=== PATIENT | male | born 1965 | race Asian ===

== ENCOUNTER 2017-11-29 11:42 | Observation (INO) | payer OTHER ==
[2017-11-29 12:19] LABS: Glucose,Whole Blood 158 mg/dL (75-99)
[2017-11-29] MEDS ORDERED: SODIUM CHLORIDE 0.9% 1,000 ML IV STA (12:26)
[2017-11-29] MEDS ORDERED: SODIUM CHLORIDE 0.9% 500 ML IV STA (12:26)
[2017-11-29] MEDS ORDERED: METOCLOPRAMIDE 5 MG/ML 2 ML VIAL IVP STA (12:27)
[2017-11-29] MEDS ORDERED: MECLIZINE 12.5 MG TAB PO STA (12:27)
--- NOTE | 2017-11-29 12:30 | ED ---
General Adult HPI - General Chief complaint: Dizziness Stated complaint: Dizziness Time Seen by Provider: 11/29/17 12:16 Source: patient, RN notes reviewed Mode of arrival: ambulatory Limitations: language barrier (Coworker is present and helps with history) - History of Present Illness Initial comments: Patient is a pleasant 52-year-old male presenting to the emergency department with dizziness. Onset was when he woke this morning around 8 AM. Patient feels like he is spinning. Patient has poor Danish and is a poor historian. Patient has reported history of hypertension. Patient admits to having nausea and some vomiting. Patient had one episode of diarrhea early this morning. - Related Data Home Medications Medication Instructions Recorded Confirmed No Known Home Medications [No 11/29/17 11/29/17 Known Home Medications] Allergies Allergy/AdvReac Type Severity Reaction Status Date / Time No Known Allergies Allergy Verified 11/29/17 12:03 Review of Systems ROS Statement: Those systems with pertinent positive or pertinent negative responses have been documented in the HPI. ROS Other: All systems not noted in ROS Statement are negative. Constitutional: Denies: fever Eyes: Denies: eye pain ENT: Denies: ear pain Respiratory: Denies: cough Cardiovascular: Denies: chest pain Endocrine: Denies: fatigue Gastrointestinal: Reports: nausea, vomiting Genitourinary: Denies: dysuria Musculoskeletal: Denies: back pain Skin: Denies: rash Neurological: Reports: vertigo. Denies: headache Past Medical History Past Medical History: Hypertension History of Any Multi-Drug Resistant Organisms: Unobtainable Past Surgical History: No Surgical Hx Reported Past Psychological History: Unable to Obtain Smoking Status: Unknown if ever smoked Past Alcohol Use History: Unable to Obtain Past Drug Use History: Unable to Obtain General Exam Limitations: language barrier General appearance: alert Head exam: Present: atraumatic Eye exam: Present: normal appearance, PERRL, EOMI. Absent: nystagmus ENT exam: Present: normal oropharynx Neck exam: Present: normal inspection Respiratory exam: Present: normal lung sounds bilaterally Cardiovascular Exam: Present: regular rate, normal rhythm GI/Abdominal exam: Present: soft. Absent: tenderness Extremities exam: Present: normal inspection Neurological exam: Present: alert, CN II-XII intact. Absent: motor sensory deficit Expanded Neurological exam: Present: protecting the airway Cranial nerves: EOM's Intact: Normal Motor strength exam: RUE: 5, LUE: 5, RLE: 5, LLE: 5 Psychiatric exam: Present: normal affect, normal mood Skin exam: Present: normal color Course Vital Signs 11/29/17 11/29/17 11:44 12:38 Temperature 97.3 F L Pulse Rate 63 56 L Respiratory 18 18 Rate Blood Pressure 200/102 166/84 O2 Sat by Pulse 97 98 Oximetry EKG Findings - EKG Comments: EKG Findings:: Normal sinus rhythm 64. UT 184. QRS 96. QT 460. QTC 474. Normal axis. LVH with repolarization changes. Medical Decision Making - Medical Decision Making Patient reevaluated and does feel much better. Patient states symptoms still return with attempts to get up. Patient is unable to get up and walk. Patient and family members who are now present and are updated on results and plan. Case was discussed in detail with Dr. myers, who will admit for medical call. He does request an echo. - Lab Data Result diagrams: 11/29/17 12:25 11/29/17 12:25 Lab Results 11/29/17 11/29/17 11/29/17 Range/Units 12:15 12:25 12:25 WBC 10.5 (3.8-10.6) k/uL RBC 5.29 (4.30-5.90) m/uL Hgb 15.9 (13.0-17.5) gm/dL Hct 47.1 (39.0-53.0) % MCV 89.1 (80.0-100.0) fL MCH 30.1 (25.0-35.0) pg MCHC 33.8 (31.0-37.0) g/dL RDW 12.5 (11.5-15.5) % Plt Count 217 (150-450) k/uL Neutrophils % 86 % Lymphocytes % 10 % Monocytes % 3 % Eosinophils % 1 % Basophils % 0 % Neutrophils # 9.1 H (1.3-7.7) k/uL Lymphocytes # 1.1 (1.0-4.8) k/uL Monocytes # 0.3 (0-1.0) k/uL Eosinophils # 0.1 (0-0.7) k/uL Basophils # 0.0 (0-0.2) k/uL PT (9.0-12.0) sec INR (<1.2) APTT (22.0-30.0) sec Sodium (137-145) mmol/L Potassium (3.5-5.1) mmol/L Chloride (98-107) mmol/L Carbon Dioxide (22-30) mmol/L Anion Gap mmol/L BUN (9-20) mg/dL Creatinine (0.66-1.25) mg/dL Est GFR (CKD-EPI)AfAm (>60 ml/min/1.73 sqM) Est GFR (CKD-EPI)NonAf (>60 ml/min/1.73 sqM) Glucose (74-99) mg/dL POC Glucose (mg/dL) 158 H (75-99) mg/dL POC Glu Cracker Dough Mixer ID [place], Jael Calcium (8.4-10.2) mg/dL Total Bilirubin (0.2-1.3) mg/dL AST (17-59) U/L ALT (21-72) U/L Alkaline Phosphatase (38-126) U/L Total Creatine Kinase 310 H (55-170) U/L CK-MB (CK-2) 4.5 H* (0.0-2.4) ng/mL CK-MB (CK-2) Rel Index 1.5 Troponin I 0.017 (0.000-0.034) ng/mL Total Protein (6.3-8.2) g/dL Albumin (3.5-5.0) g/dL 11/29/17 11/29/17 Range/Units 12:25 12:25 WBC (3.8-10.6) k/uL RBC (4.30-5.90) m/uL Hgb (13.0-17.5) gm/dL Hct (39.0-53.0) % MCV (80.0-100.0) fL MCH (25.0-35.0) pg MCHC (31.0-37.0) g/dL RDW (11.5-15.5) % Plt Count (150-450) k/uL Neutrophils % % Lymphocytes % % Monocytes % % Eosinophils % % Basophils % % Neutrophils # (1.3-7.7) k/uL Lymphocytes # (1.0-4.8) k/uL Monocytes # (0-1.0) k/uL Eosinophils # (0-0.7) k/uL Basophils # (0-0.2) k/uL PT 10.3 (9.0-12.0) sec INR 1.1 (<1.2) APTT 22.5 (22.0-30.0) sec Sodium 142 (137-145) mmol/L Potassium 4.4 (3.5-5.1) mmol/L Chloride 103 (98-107) mmol/L Carbon Dioxide 25 (22-30) mmol/L Anion Gap 14 mmol/L BUN 26 H (9-20) mg/dL Creatinine 1.00 (0.66-1.25) mg/dL Est GFR (CKD-EPI)AfAm >90 (>60 ml/min/1.73 sqM) Est GFR (CKD-EPI)NonAf 85 (>60 ml/min/1.73 sqM) Glucose 149 H (74-99) mg/dL POC Glucose (mg/dL) (75-99) mg/dL POC Glu Cracker Dough Mixer ID Calcium 9.0 (8.4-10.2) mg/dL Total Bilirubin 0.6 (0.2-1.3) mg/dL AST 39 (17-59) U/L ALT 52 (21-72) U/L Alkaline Phosphatase 75 (38-126) U/L Total Creatine Kinase (55-170) U/L CK-MB (CK-2) (0.0-2.4) ng/mL CK-MB (CK-2) Rel Index Troponin I (0.000-0.034) ng/mL Total Protein 7.3 (6.3-8.2) g/dL Albumin 4.6 (3.5-5.0) g/dL - Radiology Data Radiology results: image reviewed (Computed tomography scan of the brain shows no acute hemorrhage or mass effect. Nonspecific low attenuation white matter.) Disposition Clinical Impression: Vertigo Disposition: ADMITTED IP TO THIS [facility] Referrals: None,Stated [Primary Care Provider] - 1-2 days Decision Time: 14:23
[2017-11-29 12:43] LABS: Basophils % (A) 0 %; Eosinophils # (A) 0.1 k/uL (0-0.7); Eosinophils % (A) 1 %; HCT 47.1 % (39.0-53.0); HGB 15.9 gm/dL (13.0-17.5); Lymphocytes # (A) 1.1 k/uL (1.0-4.8); Lymphocytes % (A) 10 %; MCH 30.1 pg (25.0-35.0); MCHC 33.8 g/dL (31.0-37.0); MCV 89.1 fL (80.0-100.0); Mean Platelet Volume 7.4; Monocytes # (A) 0.3 k/uL (0-1.0); Monocytes % (A) 3 %; Neutrophils # (A) 9.1 k/uL (1.3-7.7); Neutrophils % (A) 86 %; Platelet Count 217 k/uL (150-450); RBC 5.29 m/uL (4.30-5.90); RDW 12.5 % (11.5-15.5); WBC 10.5 k/uL (3.8-10.6)
[2017-11-29 12:48] LABS: ALT 52 U/L (21-72); AST 39 U/L (17-59); Albumin 4.6 g/dL (3.5-5.0); Alkaline Phosphatase 75 U/L (38-126); Anion Gap 14 mmol/L; Blood Urea Nitrogen 26 mg/dL (9-20); Carbon Dioxide 25 mmol/L (22-30); Chloride 103 mmol/L (98-107); Glucose 149 mg/dL (74-99); Potassium 4.4 mmol/L (3.5-5.1); Sodium 142 mmol/L (137-145); Total Bilirubin 0.6 mg/dL (0.2-1.3); Total Protein 7.3 g/dL (6.3-8.2)
[2017-11-29 12:54] LABS: INR 1.1 (<1.2); Partial Thromboplastin Time 22.5 sec (22.0-30.0); Prothrombin Time 10.3 sec (9.0-12.0)
--- NOTE | 2017-11-29 13:11 | CT ---
EXAMINATION TYPE: CT brain wo con DATE OF EXAM: 11/29/2017 COMPARISON: NONE HISTORY: Headache, dizziness, vomiting and weakness today CT DLP: 1126.[address] of the head is obtained. The ventricles, basal cisterns and sulci overlying the conve xities are consistent with the patient's age. The calvarium is intact. Nonspecific low-attenuation t he white matter. No midline shift. Atherosclerotic change of the vasculature noted. Mild changes of chronic sinusitis. Area of low attenuation in the right basal ganglia may represent prominent Virchow-Oliverio space or re mote lacunar infarct. IMPRESSION: 1. No evidence of acute hemorrhage or mass effect. Nonspecific low-attenuation the white matter can b e seen with remote microvascular ischemia. Other etiologies not excluded. If symptoms persist or the re is continued clinical concern for acute ischemia correlate with MRI.
[2017-11-29 13:18] LABS: Troponin I 0.017 ng/mL (0.000-0.034)
[2017-11-29 13:27] LABS: Creatine Kinase MB 4.5 ng/mL (0.0-2.4)
[2017-11-29] MEDS ORDERED: LORazepam 2 MG/ML INJ IV PRN (14:23)
[2017-11-29] MEDS ORDERED: NALOXONE 0.4 MG/ML 1 ML VIAL IV PRN (14:23)
[2017-11-29] MEDS: SODIUM CHLORIDE 0.9% 1,000 ML IV SCH (15:39)
[2017-11-29 16:31] VITALS: BMI 23.4
--- NOTE | 2017-11-29 16:59 | ECHOF ---
Referral Reason:LVH, dizziness MEASUREMENTS -------- HEIGHT: 152.4 cm WEIGHT: 74.8 kg BP: IVSd: 1.6 cm (0.6 - 1.1) LVIDd: 3.9 cm (3.9 - 5.3) LVPWd: 1.8 cm (0.6 - 1.1) IVSs: 1.9 cm LVIDs: 2.3 cm LVPWs: 2.0 cm LA Diam: 4.2 cm (2.7 - 3.8) LAESV Index (A-L): 34.82 ml/m Ao Diam: 3.0 cm (2.0 - 3.7) AV Cusp: 1.7 cm (1.5 - 2.6) LA Diam: 4.5 cm (2.7 - 3.8) MV EXCURSION: 15.271 mm (> 18.000) MV EF SLOPE: 78 mm/s (70 - 150) EPSS: 0.3 cm MV E James: 0.47 m/s MV DecT: 335 ms MV A James: 0.73 m/s MV E/A Ratio: 0.64 RAP: 5.00 mmHg RVSP: 17.49 mmHg FINDINGS -------- Sinus rhythm. This was a technically good study. Overall left ventricular systolic function is low-normal with, an EF between 50 - 55 %. Hypertrophy Cardiomyopathy involving septal, apex, lateral ferguson,with cavity obliteration with a peak gradient o f 40.27mmhg and a mean gradient of 9.63mmhg with JENNIFER and LVOT obstruction with peak gradient of 32.5 4mmgh and mean gradient of 9.10mmhg. The right ventricle is normal in size. The left atrium is mildly dilated. LA is moderately dilated 34-39 ml/m2 The right atrial size is normal. The aortic valve is trileaflet, and appears structurally normal. No aortic stenosis or regurgitation. Mild mitral regurgitation is present. Mild tricuspid regurgitation present. There is no evidence of pulmonary hypertension. The right v entricular systolic pressure, as measured by Doppler, is 17.49mmHg. Trace/mild (physiologic) pulmonic regurgitation. The aortic root size is normal. There is no pericardial effusion. CONCLUSIONS -------- 1. Overall left ventricular systolic function is low-normal with, an EF between 50 - 55 %. 2. Hypertrophy Cardiomyopathy involving septal, apex, lateral ferguson,with cavity obliteration with a p eak gradient of 40.27mmhg and a mean gradient of 9.63mmhg with JENNIFER and LVOT obstruction with peak gr adient of 32.54mmgh and mean gradient of 9.10mmhg. 3. The left atrium is mildly dilated. 4. LA is moderately dilated 34-39 ml/m2 5. The aortic valve is trileaflet, and appears structurally normal. No aortic stenosis or regurgitati on. 6. Mild mitral regurgitation is present. 7. Mild tricuspid regurgitation present. 8. There is no evidence of pulmonary hypertension. 9. The right ventricular systolic pressure, as measured by Doppler, is 17.49mmHg. 10. Trace/mild (physiologic) pulmonic regurgitation. 11. The aortic root size is normal. 12. There is no pericardial effusion. WINDOW SHADE INSTALLER: Cindy Justin RDCS
--- NOTE | 2017-11-29 19:15 | P.CONS ---
History of Present Illness - Reason for Consult Consult date: 11/29/17 Vertigo - Chief Complaint Vertigo - History of Present Illness Is a pleasant 52-year-old male being evaluated by the neurology office for vertigo. He woke this morning around 8 AM with acute onset of severe vertigo. He had an episode or 2 of vomiting. Initially he did have a headache. He denies any significant headache now or recent upper respiratory illness. He was afebrile on admission. Resenting blood pressure was 200/102 with a pulse of 63. EKG showed a normal sinus rhythm with evidence of left ventricular hypertrophy. He was consulted and echocardiogram has been accomplished. His symptoms have persisted. And he is unable to get up and walk without severe vertigo. His glucose has been a little elevated. His CT of the brain in the emergency room showed no evidence of acute hemorrhage or mass. There was nonspecific white matter changes consistent with chronic small vessel ischemia. At the time of my exam he is lying very still in bed. He is guarding his head movements to avoid symptoms. Otherwise he is in no acute distress. Review of Systems Constitutional: Reports as per HPI Past Medical History Past Medical History: Hypertension History of Any Multi-Drug Resistant Organisms: Unobtainable Past Surgical History: No Surgical Hx Reported Past Psychological History: Unable to Obtain Smoking Status: Light tobacco smoker Past Alcohol Use History: Unable to Obtain Past Drug Use History: Unable to Obtain Medications and Allergies Home Medications Medication Instructions Recorded Confirmed Type No Known Home Medications [No 11/29/17 11/29/17 History Known Home Medications] Allergies Allergy/AdvReac Type Severity Reaction Status Date / Time No Known Allergies Allergy Verified 11/29/17 12:03 Physical Exam Vitals: Vital Signs Temp Pulse Pulse Resp BP BP Pulse Ox 11/29/17 16:48 98.3 F 66 16 167/96 97 11/29/17 16:09 97.6 F 64 18 148/87 99 11/29/17 15:35 75 18 169/98 97 11/29/17 14:50 97.6 F 11/29/17 14:47 66 16 149/77 99 11/29/17 12:38 56 L 18 166/84 98 11/29/17 11:44 97.3 F L 63 18 200/102 97 Intake and Output 11/29/17 11/29/17 11/29/17 06:59 14:59 22:59 Other: Weight 74.843 kg 76.204 kg - Constitutional General appearance: average body habitus, cooperative, no acute distress - EENT Eyes: no abnormal pupil, EOMI, PERRLA, no ptosis ENT: hearing grossly normal - Neck Neck: no lymphadenopathy, normal ROM, no rigidity - Respiratory Respiratory: negative: prolonged expiration, prolonged inspiration - Cardiovascular Rhythm: regular - Gastrointestinal General gastrointestinal: no distended, no tenderness - Neurologic The patient is alert awake and oriented 3. Speech and language are normal however there is a language barrier. His son is present and says his speech has not changed.. There is no facial asymmetry. Strength is 5 out of 5 in bilateral upper and lower extremities. There is no sensory deficit. No tremors or seizures are seen. Cranial nerves II through XII are intact globally. No nystagmus, no pronator drift. Results CBC & Chem 7: 11/29/17 12:25 11/29/17 12:25 Labs: Abnormal Lab Results - Last 24 Hours (Table) 11/29/17 11/29/17 11/29/17 Range/Units 12:15 12:25 12:25 Neutrophils # 9.1 H (1.3-7.7) k/uL BUN (9-20) mg/dL Glucose (74-99) mg/dL POC Glucose (mg/dL) 158 H (75-99) mg/dL Total Creatine Kinase 310 H (55-170) U/L CK-MB (CK-2) 4.5 H* (0.0-2.4) ng/mL 11/29/17 Range/Units 12:25 Neutrophils # (1.3-7.7) k/uL BUN 26 H (9-20) mg/dL Glucose 149 H (74-99) mg/dL POC Glucose (mg/dL) (75-99) mg/dL Total Creatine Kinase (55-170) U/L CK-MB (CK-2) (0.0-2.4) ng/mL Assessment and Plan (1) Headache Current Visit: Yes Status: Acute Code(s): R51 - HEADACHE SNOMED Code(s): 17132356 (2) Accelerated hypertension Current Visit: Yes Status: Chronic Code(s): I10 - ESSENTIAL (PRIMARY) HYPERTENSION SNOMED Code(s): 57846406 (3) Vomiting Current Visit: Yes Status: Acute Code(s): R11.10 - VOMITING, UNSPECIFIED SNOMED Code(s): 995706949 (4) Abnormal CT of brain Current Visit: Yes Status: Acute Code(s): R90.89 - OTH ABNORMAL FINDINGS ON DIAGNOSTIC IMAGING OF CNSL SNOMED Code(s): 469966294 (5) Vertigo Current Visit: Yes Status: Acute Code(s): R42 - DIZZINESS AND GIDDINESS SNOMED Code(s): 847227484 Plan: This patient with acute onset of vertigo headache and vomiting is clinically stable at this time except for persistent vertigo especially with head position. I will order MRI and MRA of the brain. I have also ordered EEG, fasting lipid panel and a carotid Doppler. If needed meclizine could be given for his vertigo. Continue neurological checks. Continue the rest your workup. We will follow and make recommendations based on the above studies. I have performed a history and physical on the above patient. I have reviewed the above note, and agree.
[2017-11-29 19:24] LABS: Troponin I 0.025 ng/mL (0.000-0.034)
[2017-11-29 19:30] LABS: Creatine Kinase MB 3.9 ng/mL (0.0-2.4)
--- NOTE | 2017-11-29 20:45 | US ---
EXAMINATION TYPE: US carotid duplex BILAT DATE OF EXAM: 11/29/2017 COMPARISON: NONE CLINICAL HISTORY: 52-year-old male orthostatic dizziness, possible TIA TECHNIQUE: Carotid duplex ultrasound examination. Indirect Doppler criteria was utilized. FINDINGS: EXAM MEASUREMENTS: RIGHT: Peak Systolic Velocity (PSV) cm/sec ----- Right CCA: 82.3 ----- Right ICA: 82.6 ----- Right ECA: 71.2 ICA/CCA ratio: 1.0 RIGHT: End Diastole cm/sec ----- Right CCA: 18.3 ----- Right ICA: 15.1 ----- Right ECA: 13.1 LEFT: Peak Systolic Velocity (PSV) cm/sec ----- Left CCA: 65.5 ----- Left ICA: 58.3 ----- Left ECA: 59.2 ICA/CCA ratio: 0.9 LEFT: End Diastole cm/sec ----- Left CCA: 16.3 ----- Left ICA: 20.8 ----- Left ECA: 9.0 VERTEBRALS (direction of flow): Right Vertebral: Antegrade Left Vertebral: Antegrade Rhythm: Normal Loan Processing Supervisor notes: No evident atherosclerotic changes and no velocity increases. IMPRESSION: No hemodynamically significant stenosis appreciated in either internal carotid artery. Criteria for Assigning % of Stenosis / Diameter reduction (Estimation based on the indirect measurements of the internal carotid artery velocities (ICA PSV). 1. Normal (no stenosis)=ICA PSV < 125 cm/s: ratio < 2.0: ICA EDV<40 cm/s. 2. Less than 50% stenosis=ICA PSV < 125 cm/s: ratio < 2.0: ICA EDV<40 cm/s. 3. 50 to 69% stenosis=ICA PSV of 125 to 230 cm/s: ration 2.0 ? 4.0: ICA EDV 40-100 cm/s. 4. Greater than 70% stenosis to near occlusion= ICA PSV > 230 cm/s: ratio > 4.0: ICA EDV > 100 cm/s. 5. Near occlusion= ICA PSV velocities may be low or undetectable: variable ratio and ICA EDV. 6. Total occlusion=unable to detect flow.
--- NOTE | 2017-11-29 21:28 | MR ---
EXAMINATION TYPE: MR brain wo con DATE OF EXAM: 11/29/2017 COMPARISON: CT earlier today HISTORY: 52-year-old male new-onset vertigo, abnormal CT TECHNIQUE: Multiplanar, multisequence images of the brain and brainstem were without IV contrast. Di ffusion weighted imaging is performed. FINDINGS: No evidence for acute infarction, hemorrhage, mass, mass effect, midline shift, herniation, effacemen t of basal cisterns, or extra-axial fluid collection. The ventricles and sulci are age-appropriate. Major intracranial flow voids are intact. T2/FLAIR weighted sequences show only mild scattered burden of bright white matter change particularl y in the periventricular and deep white matter regions of both cerebral hemispheres numbering approxi mately 5 to 10 on each side. Midline structures demonstrate normal morphology. The craniocervical junction is normal. No cerebellopontine angle mass. Trace mucosal thickening within the ethmoid air cells IMPRESSION: 1. No acute intracranial abnormality seen. 2. Only mild scattered burden of bright white matter change in both cerebral hemispheres. Likely mild burden of chronic small vessel ischemic disease.
--- NOTE | 2017-11-29 21:43 | MR ---
EXAMINATION TYPE: MR angio head wo con DATE OF EXAM: 11/29/2017 COMPARISON: NONE HISTORY: New vertigo with accelerated hypertension. Headache, dizziness, vomiting, and weakness. TECHNIQUE: Time of flight images focusing on the [place] of [place] were performed without contrast.. 2-D and 3-D postprocessing imaging is performed. FINDINGS: There is codominant vertebrobasilar system. Vertebral arteries are patent to basilar juncti on. There are hypoplastic posterior communicating arteries noted bilaterally. There is no significant focal stenosis or aneurysmal change in the posterior circulation. There is patent anterior communicating artery. There is no significant focal stenosis or aneurysmal c hange in the anterior circulation. IMPRESSION: No aneurysmal changes or significant stenosis identified at the level of the [place].
[2017-11-29] MEDS ORDERED: LISINOPRIL-HCTZ 20-12.5 MG 1 EACH TAB PO SCH (23:30)
--- NOTE | 2017-11-29 23:55 | HP ---
HISTORY AND PHYSICAL DATE OF ADMISSION: 11/29/2017. DATE OF SERVICE: 11/29/2017 PRESENTING COMPLAINT: Dizziness. HISTORY OF PRESENTING COMPLAINT: This is a 52-year-old [place]alander-speaking gentleman whose Chilean is very limited. No family member is present. History is obtained by the nurse in the ER notes. The patient has a history of hypertension, but has not been taking his medications, presents with dizziness. What I get out of the patient is that there was no chest pain, no shortness of breath and just patient felt things going around. Denies any change in vision. No weakness on the arms or legs. No palpitation. The patient's CT scan of the brain did not show any acute event. EKG done in the ER showed evidence of severe LVH and repolarization changes and 2D echo was ordered because of that. Also the patient was on a neurological workup from the ER, including a neuro consultation, and the patient's MRI of the brain was essentially unremarkable. The patient otherwise has been comfortable since his presentation. REVIEW OF SYSTEMS: Difficult to obtain because of language barrier. PAST MEDICAL HISTORY: Hypertension. PAST SURGICAL HISTORY: None reported. SOCIAL HISTORY: Patient denies drinking alcohol or smoking. The patient does not have a . He has 2 sons and works apparently works at the [employer] in [employer]. PHYSICAL EXAMINATION: VITAL SIGNS: On presentation, temperature 97.3, pulse 63, respirations 18, blood pressure 200/102, pulse ox 97% on room air. GENERAL APPEARANCE: Average build, lying in bed, comfortable. EYES: Pupils equal. Conjunctivae normal. HEENT: External appearance of nose and ears normal. Oral cavity normal. NECK: JVD not raised. Mass not palpable. RESPIRATORY: Effort normal. Lungs are clear. CARDIOVASCULAR: First and second sounds normal. No edema. ABDOMEN: Soft, nontender. Liver and spleen not palpable. LYMPHATIC: No lymph nodes palpable in neck or axillae. PSYCHIATRY: Patient is following commands. Difficult to assess further because of language barrier. NEUROLOGICAL: Pupils equal. Cranial nerves grossly intact. Power and sensation grossly intact. INVESTIGATION: White count 10.5, hemoglobin 15.9. Potassium 4.4, BUN 26, creatinine 1.0, glucose 149. Troponin 0.017, 0.025. EKG shows LVH with repolarization abnormality. ASSESSMENT: 1. This is a patient who has hypertensive heart disease per echocardiogram with severe repolarization changes. The patient may have had underlying arrhythmia causing his manifestation. 2. Accelerated hypertension, untreated. 3. Hypertensive heart disease. 4. No obvious clinical evidence of stroke with no focal or lateralizing symptoms. PLAN: Neurology was consulted from the ER and their workup is in place. We will also get a Cardiology opinion. For the blood pressure, we will start the patient on lisinopril/hydrochlorothiazide 20/12.5 twice a day and aspirin. The patient does have a family doctor, but cannot remember the same. MMODL / IJN: [id number] /
[2017-11-30 01:47] LABS: Cholesterol 179 mg/dL (<200); HDL Cholesterol 37 mg/dL (40-60); LDL Cholesterol,Calculated 92 mg/dL (0-99); Triglycerides 252 mg/dL (<150)
[2017-11-30 01:53] LABS: Creatine Kinase MB 3.3 ng/mL (0.0-2.4)
[2017-11-30 01:55] LABS: Troponin I 0.048 ng/mL (0.000-0.034)
[2017-11-30] MEDS ORDERED: HEPARIN SODIUM,PORCINE 5,000 UNIT/ML 1 ML VIAL IV ONE (02:14)
[2017-11-30] MEDS ORDERED: HEPARIN SODIUM,PORCINE 5,000 UNIT/ML 1 ML VIAL IV PRN (02:14)
[2017-11-30] MEDS: ASPIRIN 325 MG TAB PO SCH ×2 (02:27→11:27)
[2017-11-30] MEDS ORDERED: HEPARIN SODIUM,PORCINE/D5W PMX 25,000 UNIT in DEXTROSE/WATER 1 500ML.BAG IV SCH (02:30)
[2017-11-30 03:09] LABS: Basophils % (A) 1 %; Eosinophils # (A) 0.2 k/uL (0-0.7); Eosinophils % (A) 3 %; HGB 15.1 gm/dL (13.0-17.5); Lymphocytes # (A) 1.6 k/uL (1.0-4.8); Lymphocytes % (A) 26 %; MCH 30.3 pg (25.0-35.0); MCHC 33.5 g/dL (31.0-37.0); MCV 90.4 fL (80.0-100.0); Mean Platelet Volume 7.5; Monocytes # (A) 0.3 k/uL (0-1.0); Monocytes % (A) 5 %; Neutrophils # (A) 3.8 k/uL (1.3-7.7); Neutrophils % (A) 63 %; Platelet Count 211 k/uL (150-450); RBC 4.99 m/uL (4.30-5.90); RDW 12.7 % (11.5-15.5)
[2017-11-30 03:34] LABS: Partial Thromboplastin Time 22.6 sec (22.0-30.0)
[2017-11-30 09:33] VITALS: RESP 16
--- NOTE | 2017-11-30 10:17 | P.CRDCN ---
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 Apparently he is to live in [facility]. He is to take medications but has quit about 6 months ago. He came mainly with complaints of symptoms of dizziness suggestive of vertigo. Patient's blood pressure was high on admission. His symptoms have resolved and is feeling better today. His EKG on admission showed a sinus rhythm with evidence of left ventricle hypertrophy with a diffuse deep T-wave inversions in anterolateral leads. He denied any chest pain or shortness of breath. 2 of his troponin values are within normal limits and the third one is in the abnormal range. Echocardiogram is suggestive of hypertrophic cardiomyopathy, systolic anterior motion of the anterior leaflet or chordae tendineae. Most probably patient has this chronically. I'm going to change hypertensive medications to calcium channel jaida in the form of Norvasc. I will also repeat another troponin value to see if there is any trend to suggest acute coronary syndrome. Neurology workup is pending here, so fa, Carotid duplex study and a computed tomography scan of the brain were negative. Review of Systems As per the chart Past Medical History Past Medical History: Hypertension History of Any Multi-Drug Resistant Organisms: Unobtainable Past Surgical History: No Surgical Hx Reported Past Psychological History: Unable to Obtain Smoking Status: Light tobacco smoker Past Alcohol Use History: Unable to Obtain Past Drug Use History: Unable to Obtain Medications and Allergies Home Medications Medication Instructions Recorded Confirmed Type No Known Home Medications [No 11/29/17 11/29/17 History Known Home Medications] Allergies Allergy/AdvReac Type Severity Reaction Status Date / Time No Known Allergies Allergy Verified 11/29/17 12:03 Physical Exam Vitals: Vital Signs Temp Pulse Pulse Resp BP BP Pulse Ox 11/30/17 08:00 97.7 F 64 16 124/75 100 11/30/17 04:12 97.2 F L 66 14 143/94 95 11/30/17 00:00 98.1 F 64 16 143/81 97 11/29/17 23:31 16 11/29/17 20:00 97.9 F 62 16 145/84 97 11/29/17 16:48 98.3 F 66 16 167/96 97 11/29/17 16:09 97.6 F 64 18 148/87 99 11/29/17 15:35 75 18 169/98 97 11/29/17 14:50 97.6 F 11/29/17 14:47 66 16 149/77 99 11/29/17 12:38 56 L 18 166/84 98 11/29/17 11:44 97.3 F L 63 18 200/102 97 Intake and Output 11/29/17 11/30/17 11/30/17 22:59 06:59 14:59 Intake Total 0 103.587 Balance 0 103.587 Intake: Intake, IV Titration 103.587 Amount Heparin Sodium,Porcine/ 103.587 D5w Pmx 25,000 unit In Dextrose/Water 1 500ml. bag @ 12 UNITS/KG/HR 18. 28 mls/hr IV .Q24H [facility] Rx #:[id number] Oral 0 Other 0 Other: # Voids 1 1 Weight 76.204 kg 75.7 kg GENERAL EXAM: Patient is alert and oriented and doesn't appear to be in any acute distress HEENT: Normocephalic. Normal reaction of pupils, equal size, normal range of extraocular motion. No erythema or exudates in the throat. NECK: No masses, no nuchal rigidity. CHEST: No chest wall deformity. Heaving apical impulse LUNGS: Equal air entry with no crackles or wheeze. HEART: S1 and S2 normal. Systolic murmur heard both at the apex and also the aortic area... ABDOMEN: No hepatosplenomegaly, normal bowel sounds, no guarding or rigidity. SKIN: No rashes CENTRAL NERVOUS SYSTEM: No focal deficits. EXTREMITIES: No cyanosis, clubbing or edema. Results 11/30/17 02:44 11/29/17 12:25 Cardiac Enzymes 11/29/17 11/29/17 11/29/17 Range/Units 12:25 12:25 18:30 AST 39 (17-59) U/L CK-MB (CK-2) 4.5 H* 3.9 H* (0.0-2.4) ng/mL Troponin I 0.017 0.025 (0.000-0.034) ng/mL 11/30/17 Range/Units 00:48 AST (17-59) U/L CK-MB (CK-2) 3.3 H* (0.0-2.4) ng/mL Troponin I 0.048 H* (0.000-0.034) ng/mL Coagulation 11/29/17 11/30/17 11/30/17 Range/Units 12:25 02:44 08:11 PT 10.3 10.0 (9.0-12.0) sec APTT 22.5 22.6 32.3 H (22.0-30.0) sec Lipids 11/30/17 Range/Units 00:48 Triglycerides 252 H (<150) mg/dL Cholesterol 179 (<200) mg/dL HDL Cholesterol 37 L (40-60) mg/dL CBC 11/29/17 11/30/17 Range/Units 12:25 02:44 WBC 10.5 6.0 (3.8-10.6) k/uL RBC 5.29 4.99 (4.30-5.90) m/uL Hgb 15.9 15.1 (13.0-17.5) gm/dL Hct 47.1 45.0 (39.0-53.0) % Plt Count 217 211 (150-450) k/uL Comprehensive Metabolic Panel 11/29/17 Range/Units 12:25 Sodium 142 (137-145) mmol/L Potassium 4.4 (3.5-5.1) mmol/L Chloride 103 (98-107) mmol/L Carbon Dioxide 25 (22-30) mmol/L BUN 26 H (9-20) mg/dL Creatinine 1.00 (0.66-1.25) mg/dL Glucose 149 H (74-99) mg/dL Calcium 9.0 (8.4-10.2) mg/dL AST 39 (17-59) U/L ALT 52 (21-72) U/L Alkaline Phosphatase 75 (38-126) U/L Total Protein 7.3 (6.3-8.2) g/dL Albumin 4.6 (3.5-5.0) g/dL Current Medications Generic Name Dose Route Start Last Admin Trade Name Freq PRN Reason Stop Dose Admin Aspirin 325 mg 11/29/17 23:30 11/30/17 02:27 Aspirin PO 325 mg DAILY [facility] Administration Lisinopril/HCTZ 1 each 11/29/17 23:30 11/30/17 02:26 Zestoretic 20-12.5 PO 1 each BID DOMENICO Administration Heparin Sodium (Porcine) 0 unit 11/30/17 02:14 Heparin IV PER PROTOCOL PRN Low PTT Protocol Sodium Chloride 1,000 mls @ 20 mls/hr 11/29/17 14:30 11/29/17 15:39 Saline 0.9% IV Not Given .Q24H [facility] Heparin Sodium/Dextrose 25,000 500 mls @ 18.28 mls/hr 11/30/17 02:30 09:36 unit/ IV Solution IV 15 units/kg/hr .Q24H [facility] 22.86 mls/hr Protocol Titration 12 UNITS/KG/HR Lorazepam 0.5 mg 11/29/17 14:23 11/29/17 21:55 Ativan IV 0.5 mg Q6HR PRN Administration Vertigo Naloxone HCl 0.2 mg 11/29/17 14:23 Narcan IV Q2M PRN Opioid Reversal Intake and Output 11/29/17 11/30/17 11/30/17 22:59 06:59 14:59 Intake Total 0 103.587 Balance 0 103.587 Intake: Intake, IV Titration 103.587 Amount Heparin Sodium,Porcine/ 103.587 D5w Pmx 25,000 unit In Dextrose/Water 1 500ml. bag @ 12 UNITS/KG/HR 18. 28 mls/hr IV .Q24H [facility] Rx #:[id number] Oral 0 Other 0 Other: # Voids 1 1 Weight 76.204 kg 75.7 kg 11/30/17 02:44 11/29/17 12:25 EKG Interpretations (text) Sinus rhythm with evidence of a left ventricle hypertrophy and deep T-wave changes in the anterolateral leads consistent with hypertrophic cardiomyopathy Assessment and Plan (1) Hypertrophic cardiomyopathy Current Visit: Yes Status: Acute Code(s): I42.2 - OTHER HYPERTROPHIC CARDIOMYOPATHY SNOMED Code(s): 647444656 (2) Vertigo Current Visit: Yes Status: Acute Code(s): R42 - DIZZINESS AND GIDDINESS SNOMED Code(s): 885930760 (3) Accelerated hypertension Current Visit: Yes Status: Chronic Code(s): I10 - ESSENTIAL (PRIMARY) HYPERTENSION SNOMED Code(s): 36882245 Plan: I'll changes his antihypertensive medication to Norvasc. May add beta jaida later on if necessary. We'll also get on the troponin value. Patient is anxious to go home. If the next troponin value is not consistent the pattern of acute coronary syndrome, patient could be discharged home. Follow-up as an outpatient
--- NOTE | 2017-11-30 11:41 | ECHOF ---
Referral Reason:cp MEASUREMENTS -------- HEIGHT: 152.4 cm WEIGHT: 75.3 kg BP: LVOT Vmax: 3.09 m/s LVOT maxP.25 mmHg LVOT Vmax: 3.08 m/s LVOT Vmean: 1.32 m/s LVOT maxP.03 mmHg LVOT meanP.77 mmHg LVOT Env.Ti: 304 ms LVOT VTI: 40.5 cm FINDINGS -------- Sinus rhythm. Follow up with additional pictures from study done 11/29/17. Hypertrophy Cardiomyopathy involving Septal, De Smet and Lateral ferguson, with Cavity obliteration with p eak gradient of 40.27mmHg and mean gradient of 9.63mmHg with JENNIFER and LVOT obstruction with Peak gradi ent of 32.54mmHg and mean gradient of 9.10mmHg. CONCLUSIONS -------- 1. Sinus rhythm. 2. Hypertrophy Cardiomyopathy involving Septal, De Smet and Lateral ferguson, with Cavity obliteration wit h peak gradient of 40.27mmHg and mean gradient of 9.63mmHg with JENNIFER and LVOT obstruction with Peak gr adient of 32.54mmHg and mean gradient of 9.10mmHg. SLITTER CREASER SLOTTER OPERATOR: Cindy Justin RDCS
[2017-11-30 12:31] VITALS: BP 134/70; PULSE 66; TEMP 97.2
[2017-11-30] MEDS: SODIUM CHLORIDE 0.9% 1,000 ML IV SCH (14:44)
--- NOTE | 2017-11-30 21:11 | DS ---
DISCHARGE SUMMARY DATE OF ADMISSION: November 29, 2017. DATE OF DISCHARGE: November 30, 2017. FINAL DIAGNOSES: 1. Hypertrophic cardiomyopathy. 2. Accelerated hypertension. HOSPITAL COURSE: This patient presented with episodes of dizziness. Because of Mandarin speaking, history was limited. 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 Patient lives in [place]. He was following there with a doctor, he stopped following. 2D echocardiogram showed evidence of hypertrophic cardiomyopathy. Blood pressure was up, rather up. Otherwise patient neuro workup was negative. I did discuss with Dr. Cardona, then discussed with the patient's son that all other family members need to get examined. Son understands this and will convey this to the other family members. He did say that his sister also has some heart disease, appears to be similar. EXAM: Lungs are clear. Cardiovascular 1st and 2nd sounds normal. The patient's blood pressure today is 134/70. DISCHARGE MEDICATIONS: 1. Amlodipine 5 mg a day. 2. Aspirin 81 mg a day. CONSULTATION: 1. Dr. Cardona from Cardiology. 2. Dr. Rodríguez from Neurology. FOLLOWUP: Follow up with Dr. Bergeron in 1 week, follow up with Dr. Cardona in 1 week. MMODL / IJN: [id number] /
[2017-12-01] MEDS ORDERED: amLODIPine 5 MG TAB PO SCH (09:00)
--- NOTE | 2017-12-01 18:30 | EEG ---
ELECTROENCEPHALOGRAM REPORT DATE OF SERVICE: 11/30/2017. REASON FOR TESTING: Dizziness. DESCRIPTION OF THE PROCEDURE: This EEG was performed using a 21 channel digital electroencephalograph, following international 10-20 system. DESCRIPTION OF THE RECORDING: From the beginning of the tracing, and with the patient's eyes closed, the background rhythm was mostly consisting of 8-9 hertz alpha frequency in the posterior occipital leads. No obvious asymmetry is seen. Photic stimulation was performed with a good driving response seen. No pathological waves were elicited. Hyperventilation was not performed. Occasional movement and muscle artifacts are seen. Later in the tracing, the patient does reach stage II of sleep and occasional sleep spindles were seen. No epileptiform discharges were seen. His EKG lead showed a regular rate and rhythm. INTERPRETATION: This asleep and awake EEG can be considered within normal limits. There was no asymmetry seen. No epileptiform discharges were noticed. The absence of epileptiform discharges does not rule out the diagnosis of epilepsy; therefore clinical correlation is recommended. MMJUSTIN / CHRISTIANN: [id number] /
== END 2017-11-30 15:47 | disposition home or self-care (01) ==
LOC: EC 11:42 → 3OBS 14:23 → 6SEL 11-30 03:23
PROVIDERS: ADMIT Hospitalist; ATTEND Hospitalist
DX: I42.2 Other hypertrophic cardiomyopathy (principal); I11.9 Hypertensive heart disease without heart failure; Z91.14 Patient's other noncompliance with medication regimen; R73.9 Hyperglycemia, unspecified; F17.200 Nicotine dependence, unspecified, uncomplicated; R11.2 Nausea with vomiting, unspecified; R19.7 Diarrhea, unspecified; R93.0 Abnormal findings on diagnostic imaging of skull and head, not elsewhere classified
CPT/HCPCS: 99285 ×2; 96374 ×2; 96361 ×7; 96375; 36415; 95819; 93005; 93308; 93306; 80061; 80053; 82550 ×2; 82553 ×2; 84484 ×2; 85025 ×2; 85610 ×2; 85730 ×2; 93880; 70450; 70544; 70551; G0378 ×3; J2060; J1644 ×2; J2765